=== PATIENT | female | born 1970 | race African-American/Black ===

== ENCOUNTER 2018-07-05 16:13 | Emergency (ER) | payer SELFPAY ==
[~2018-07-05] VITALS: Ht 167.6 cm; Wt 89.0 kg
[2018-07-05] MEDS ORDERED: hydrochlorothiazide (17:18)
[2018-07-05] MEDS ORDERED: KETOROLAC 30MG/ML VIAL IM ONE (19:15)
[2018-07-05 19:37] LABS: HEMATOCRIT 42.3 % (36.0-48.0); HEMOGLOBIN 13.9 g/dL (12.0-16.0); MEAN CORPUSCULAR HEMOGLOBIN 30.6 pg (28.0-32.0); MEAN CORPUSCULAR VOLUME 93.3 fL (81.0-99.0); PLATELET 287 x1000/uL (130-400); RED BLOOD CELL COUNT 4.53 mill/uL (4.2-5.4); RED CELL DISTRIBUTION WIDTH 14.5 % (11.6-14.6)
[2018-07-05 19:44] LABS: CHLORIDE 104 mEq/L (98-107)
[2018-07-05 20:20] LABS: CLARITY URINE CLOUDY (CLEAR); COLOR URINE YELLOW (YELLOW); KETONES URINE TRACE (NEGATIVE); LEUKOCYTE ESTERASE URINE 1+ (NEGATIVE); NITRITE URINE NEGATIVE (NEGATIVE); OCCULT BLOOD URINE 3+ (NEGATIVE); PROTEIN URINE 1+ (NEGATIVE); SPECIFIC GRAVITY URINE 1.031 (1.005-1.030)
[2018-07-05] MEDS ORDERED: CEFTRIAXONE SODIUM 1 G/VIAL IM ONE (21:30)
[2018-07-05] MEDS ORDERED: LIDOCAINE HCL 1% 20ML VIAL (Pyxis) INJ INFIL ONE (21:30)
[2018-07-05 23:00] VITALS: BP 180/90
== END 2018-07-05 23:13 | disposition home or self-care (01) ==
LOC: ER 16:57
DX: J18.9 Pneumonia, unspecified organism (principal); N39.0 Urinary tract infection, site not specified; I10 Essential (primary) hypertension; F17.210 Nicotine dependence, cigarettes, uncomplicated; M54.6 Pain in thoracic spine; Z90.89 Acquired absence of other organs; Z71.6 Tobacco abuse counseling
CPT/HCPCS: 36415; 71045; 80048; 81003; 81025; 85027; 96372; 99284; 99406; J0696; J1885; J3490

== ENCOUNTER 2018-11-03 19:59 | Emergency (ER) | payer OTHER ==
[~2018-11-03] VITALS: Ht 167.6 cm; Wt 100.0 kg
[~2018-11-03 19:59] MED LIST: hydrochlorothiazide
[2018-11-03] MEDS ORDERED: PREDNISONE 20MG TABLET PO STA (21:05)
[2018-11-03] MEDS ORDERED: HYDROCODONE/ACETAMINOPHEN 5/325MG TABLET PO ONE (21:15)
[2018-11-03] MEDS ORDERED: IPRATROPIUM/ALBUTEROL 0.5-3(2.5)MG/3ML NEB HHN ONE (21:15)
[2018-11-03] MEDS ORDERED: IBUPROFEN 800MG TABLET PO ONE (21:15)
[2018-11-03] MEDS ORDERED: AZITHROMYCIN 500 MG TABLET PO ONE (21:15)
[2018-11-03 23:11] VITALS: BP 185/117
== END 2018-11-03 23:16 | disposition home or self-care (01) ==
LOC: ER 19:59
DX: J40 Bronchitis, not specified as acute or chronic (principal); I16.0 Hypertensive urgency; M54.89 Other dorsalgia
CPT/HCPCS: 71045; 81025; 94640; 99284; J7512; J7620

== ENCOUNTER 2018-12-02 01:16 | Emergency (ER) | payer OTHER ==
[~2018-12-02] VITALS: Ht 167.6 cm; Wt 101.5 kg
[2018-12-02] MEDS ORDERED: DIPHENHYDRAMINE 50MG CAPSULE PO ONE (06:30)
[2018-12-02] MEDS ORDERED: IBUPROFEN 600MG TABLET PO ONE (06:30)
[2018-12-02 08:12] VITALS: BP 166/89
== END 2018-12-02 08:13 | disposition home or self-care (01) ==
LOC: ER 01:16
DX: S51.831A Puncture wound without foreign body of right forearm, initial encounter (principal); J45.909 Unspecified asthma, uncomplicated; I10 Essential (primary) hypertension; F17.200 Nicotine dependence, unspecified, uncomplicated; W57.XXXA Bitten or stung by nonvenomous insect and other nonvenomous arthropods, initial encounter; Y93.89 Activity, other specified; Y92.89 Other specified places as the place of occurrence of the external cause; Y99.8 Other external cause status
CPT/HCPCS: 81025; 99283; Q0163

== ENCOUNTER 2021-06-05 16:40 | Emergency (ER) | payer MEDICAID, OTHER ==
[~2021-06-05] VITALS: Ht 167.6 cm; Wt 100.0 kg
[2021-06-05 20:33] LABS: HEMATOCRIT. 41.7 % (36.0-48.0); LYMPHOCYTES % 36.8 % (20.0-50.0); MEAN CORPUSCULAR HEMOGLOBIN 31.3 pg (28.0-32.0); MEAN CORPUSCULAR VOLUME 93.5 fL (81.0-99.0); MEAN PLATELET VOLUME 7.4 fl (7.4-10.4); NEUTROPHILS % 52.2 % (40.0-76.0); PLATELET 328 x1000/uL (130-400); RED BLOOD CELL COUNT 4.46 mill/uL (4.2-5.4); RED CELL DISTRIBUTION WIDTH 13.9 % (11.6-14.6)
[2021-06-05 20:39] LABS: CHLORIDE 101 mEq/L (98-107)
[2021-06-05] MEDS ORDERED: AMOX-424 MT (22:58)
[2021-06-05 23:00] VITALS: BP 127/90
[2021-06-05] MEDS ORDERED: IOHEXOL-300 100 ML BOTTLE ONE (23:29)
== END 2021-06-05 23:15 | disposition home or self-care (01) ==
LOC: ER 16:40
DX: H57.11 Ocular pain, right eye (principal); L03.213 Periorbital cellulitis
CPT/HCPCS: 36415; 70481; 80053; 85025; 99285; Q9967

== ENCOUNTER 2021-11-26 14:18 | Emergency (ER) | payer MEDICAID, OTHER ==
[~2021-11-26] VITALS: Ht 165.1 cm; Wt 88.0 kg
[~2021-11-26 14:18] MED LIST changes: +AMOX-424 MT
[2021-11-26 21:28] LABS: BASOPHILS % 0.5 % (0.0-2.0); EOSINOPHILS % 1.4 % (0.0-5.0); HEMATOCRIT. 37.4 % (36.0-48.0); HEMOGLOBIN. 12.3 g/dL (12.0-16.0); MEAN CORPUSCULAR HEMOGLOBIN 30.6 pg (28.0-32.0); MEAN CORPUSCULAR VOLUME 93.5 fL (81.0-99.0); MEAN PLATELET VOLUME 7.9 fl (7.4-10.4); MONOCYTES % 8.8 % (2.0-8.0); NEUTROPHILS % 52.3 % (40.0-76.0); PLATELET 302 x1000/uL (130-400); RED CELL DISTRIBUTION WIDTH 14.2 % (11.6-14.6)
[2021-11-26 21:42] LABS: CHLORIDE 104 mEq/L (98-107)
[2021-11-26] MEDS ORDERED: CLOT24CR TP (22:11)
[2021-11-26 22:44] VITALS: BP 122/78
== END 2021-11-26 22:44 | disposition home or self-care (01) ==
LOC: ER 14:28
DX: B36.0 Pityriasis versicolor (principal); R21 Rash and other nonspecific skin eruption; J45.909 Unspecified asthma, uncomplicated; I10 Essential (primary) hypertension; F12.10 Cannabis abuse, uncomplicated
CPT/HCPCS: 36415; 80053; 85025; 99283

== ENCOUNTER 2023-05-10 22:27 | Emergency (ER) | payer MEDICAID, OTHER ==
[~2023-05-10] VITALS: Ht 167.6 cm; Wt 98.0 kg
[~2023-05-10 22:27] MED LIST changes: +CLOT24CR TP
[2023-05-10 22:35] VITALS: BP 179/103; PULSE 85; RESP 14; TEMP 98.5
[2023-05-11] MEDS ORDERED: KETOROLAC 60MG/2ML VIAL IM ONE (00:45)
[2023-05-11] MEDS ORDERED: ACET-2708 MT (01:10)
== END 2023-05-11 01:54 | disposition home or self-care (01) ==
LOC: ER 22:27
DX: S62.521A Displaced fracture of distal phalanx of right thumb, initial encounter for closed fracture (principal); J45.909 Unspecified asthma, uncomplicated; I10 Essential (primary) hypertension; F12.10 Cannabis abuse, uncomplicated; X58.XXXA Exposure to other specified factors, initial encounter; Y93.89 Activity, other specified; Y92.89 Other specified places as the place of occurrence of the external cause; Y99.8 Other external cause status
CPT/HCPCS: 99283; 73140; 29125; J1885

== ENCOUNTER 2024-07-26 13:32 | Emergency (ER) | payer MEDICAID, OTHER ==
[~2024-07-26] VITALS: Ht 167.6 cm; Wt 86.1 kg
[~2024-07-26 13:32] MED LIST changes: +ACET-2708 MT
[2024-07-26 13:34] VITALS: PULSE 86; RESP 17; O2SAT 100
[2024-07-26 13:40] VITALS: BP 132/85; TEMP 36.9; O2SAT 98
[2024-07-26 14:52] LABS: BASOPHILS % 0.5 % (0.0-2.0); EOSINOPHILS % 0.5 % (0.0-5.0); HEMATOCRIT. 43.3 % (36.0-48.0); HEMOGLOBIN. 13.8 g/dL (12.0-16.0); LYMPHOCYTES % 29.1 % (20.0-50.0); MEAN CORPUSCULAR HEMOGLOBIN 29.8 pg (28.0-32.0); MEAN CORPUSCULAR HGB CONC 31.8 g/dL (31.0-37.0); MEAN CORPUSCULAR VOLUME 93.8 fL (81.0-99.0); MEAN PLATELET VOLUME 8.6 fl (7.4-10.4); MONOCYTES % 7.4 % (2.0-8.0); NEUTROPHILS % 62.5 % (40.0-76.0); PLATELET 295 x1000/uL (130-400); RED BLOOD CELL COUNT 4.62 mill/uL (4.2-5.4); RED CELL DISTRIBUTION WIDTH 14.9 % (11.6-14.6); WHITE BLOOD COUNT 8.3 x1000/uL (4.5-11.0)
[2024-07-26 15:02] LABS: POTASSIUM 3.3 mEq/L (3.5-5.1)
[2024-07-26 15:03] LABS: CALCIUM 10.4 mg/dL (8.7-10.4)
[2024-07-26 15:08] LABS: CREATININE 1.9 mg/dL (0.6-1.0)
[2024-07-26] MEDS: ASPIRIN 81MG TABLET PO ONE (16:15)
[2024-07-26] MEDS: ACETAMINOPHEN 325MG TABLET PO ONE (16:15)
[2024-07-26] MEDS: METOCLOPRAMIDE 10MG/10 ML UDC PO ONE (16:30)
[2024-07-26 16:49] LABS: TROPONIN I HIGH SENSITIVITY 18 ng/L (3.0-34)
== END 2024-07-26 21:26 | disposition left against medical advice (07) ==
LOC: ER 13:32 → EDBEDREQ 16:30 → ER 21:26
DX: R07.89 Other chest pain (principal); J45.909 Unspecified asthma, uncomplicated; I10 Essential (primary) hypertension; Z79.899 Other long term (current) drug therapy; Z87.59 Personal history of other complications of pregnancy, childbirth and the puerperium
CPT/HCPCS: 80048; 85025; 84484; 36415; 71045; 93005; 99285; Z7610 ×2; J8597